=== PATIENT | male | born 1955 | race Caucasian/White ===

== ENCOUNTER → 2017-06-17 | Outpatient (CLI) | payer OTHER ==
[~2017-06-17] MED LIST: B-COCAP2 PO; FLNIN NAE; IBUP-1050 PO; KETO10TA PO; MBC75 PO; OXYC-106 PO; OXYC-57 PO; STLS PO
--- NOTE | 2017-06-17 17:19 | DIAGNOSTIC IMAGING REPORT ---
CHEST 2 VIEWS ROUTINE CLINICAL HISTORY: PRE OP TESTING, WENT TO [facility], SEND TO [facility] COMPARISON STUDY: No previous studies for comparison. FINDINGS: The bones soft tissues and hemidiaphragms are normal. The cardiomediastinal silhouette is normal. The lungs are clear. The pulmonary vasculature is normal. IMPRESSION: Negative chest. The above report was generated using voice recognition software. It may contain grammatical, syntax or spelling errors. Electronically signed by: Shimon Medina M.D. 06/17/2017 5:17 PM Dictated Date/Time: 06/17/2017 5:17 PM
[2017-06-17 17:39] LABS: BASO % 1.2 %; BASO ABS # 0.13 K/uL (0-0.2); EOS % 4.7 %; EOS ABS # 0.51 K/uL (0-0.5); HEMATOCRIT 43.2 % (42-52); HEMOGLOBIN 14.9 g/dL (14.0-18.0); IG# 0.04 K/uL (0.00-0.02); LYMPH % 31.1 %; MEAN CELL VOLUME 93.3 fL (80-100); MEAN CORPUSCULAR HEMOGLOBIN 32.2 pg (25-34); MEAN CORPUSCULAR HGB CONC 34.5 g/dl (32-36); MEAN PLATELET VOLUME 10.8 fL (7.4-10.4); MONO % 11.3 %; MONO ABS # 1.23 K/uL (0.11-0.59); NEUT % 51.3 %; NEUT ABS # 5.62 K/uL (1.4-6.5); PLATELET COUNT 279 K/uL (130-400); RED CELL DISTRIBUTION WIDTH CV 13.1 % (11.5-14.5); RED CELL DISTRIBUTION WIDTH SD 44.6 fL (36.4-46.3); WHITE BLOOD COUNT 10.93 K/uL (4.8-10.8)
[2017-06-17 18:15] LABS: BLOOD UREA NITROGEN 22 mg/dl (7-18); CALCIUM 9.6 mg/dl (8.5-10.1); CARBON DIOXIDE 29 mmol/L (21-32); CREATININE 1.22 mg/dl (0.60-1.40); GLUCOSE 87 mg/dl (70-99); POTASSIUM 4.2 mmol/L (3.5-5.1); SODIUM 135 mmol/L (136-145)
== END | disposition home or self-care (01) ==
LOC: C.LAB 16:41
PROVIDERS: ATTEND Orthopaedic Surgery
DX: Z01.812 Encounter for preprocedural laboratory examination (principal); M75.121 Complete rotator cuff tear or rupture of right shoulder, not specified as traumatic